=== PATIENT | female | born 1985 | race Caucasian/White ===

== ENCOUNTER 2017-08-21 10:52 | Inpatient (IN) | payer MEDICAID ==
[~2017-08-21] VITALS: Ht 165.1 cm; Wt 59.0 kg
[~2017-08-21 10:52] MED LIST: AMOXICILLIN500 MG PO; BENADRYL50 MG PO; NKM; VICODIN 5-5001 EACH PO
[2017-08-21 11:15] VITALS: BP 108/63
--- NOTE | 2017-08-21 11:19 | Emergency Room Report ---
History of Present Illness General Chief Complaint: Abnormal Labs Source: Patient Present Illness HPI 31-year-old female history of anemia sent by for low H&H. Hemoglobin noted to be 5.5. Patient states that she has a history of anemia, has seen a prosthetics lab technician in the past, does not know why, he is to take iron but the last time she took it was 1 year ago. Denies any abdominal pain nausea vomiting black or bloody stools. Patient states her stools are brown in color. Patient states that she has normal menstrual periods, only about one to 2 pads a day. No clots. Patient denies ever having a transfusion in the past Patient complains of mild fatigue however no shortness of breath no chest pain Allergies: Coded Allergies: No Known Allergies (Unverified , 12/09/12) Patient History Past Medical History: see triage record Past Surgical History: none Pertinent Family History: none Last Menstrual Period: 08/12/17 Reviewed Nursing Documentation: PMH: Agreed, PSxH: Agreed Review of Systems All Other Systems: negative except mentioned in HPI Physical Exam Vital Signs Date Time Temp Pulse Resp B/P (MAP) Pulse Ox O2 Delivery O2 Flow Rate FiO2 08/21/17 10:57 98.1 93 18 109/72 100 Room Air Sp02 EP Interpretation: reviewed, normal General Appearance: no apparent distress, alert, GCS 15, non-toxic, other - slight pallor otherwise nontoxic Head: normocephalic, atraumatic Eyes: bilateral eye normal inspection, bilateral eye PERRL, bilateral eye EOMI ENT: normal ENT inspection, normal pharynx, normal voice, moist mucus membranes Neck: normal inspection, full range of motion, supple Respiratory: normal inspection, lungs clear, normal breath sounds, no respiratory distress, no retraction, no wheezing, speaking full sentences, chest symmetrical Cardiovascular #1: normal inspection, regular rate, rhythm, no edema, normal capillary refill Cardiovascular #2: 2+ radial (R), 2+ radial (L) Gastrointestinal: normal inspection, non tender, soft, non-distended, no guarding Musculoskeletal: normal inspection, back normal, normal range of motion, non- tender Neurologic: normal inspection, alert, oriented x3, responsive, motor strength/ tone normal, sensory intact, normal gait, speech normal Psychiatric: normal inspection, judgement/insight normal, memory normal Skin: no rash, warm/dry, well hydrated, normal turgor, pallor Medical Decision Making Diagnostic Impression: Primary Impression: Symptomatic anemia ER Course 31-year-old female with low H&H DDX: Anemia secondary to anemia of chronic disease, bleeding (? GI versus vaginal bleeding) malignancy Plan: Obtain labs, type and screen, will transfuse emergency room ER course: Patient has been monitored during ED stay, HD stable h/h low, will xfuse 2 units, first unit started in ED Disposition: Pt admitted to med surg observation unit D/W hospitalist Dr Washington Please note that this Emergency Department Report was dictated using The [employer] teacher technology software, occasionally this can lead to erroneous entry secondary to interpretation by the dictation equipment. Laboratory Tests Test 08/21/17 11:15 White Blood Count 4.5 K/UL (4.8-10.8) L Red Blood Count 3.91 M/UL (4.20-5.40) L Hemoglobin 6.4 G/DL (12.0-16.0) *L Hematocrit 22.7 % (37.0-47.0) L Mean Corpuscular Volume 58 FL (80-99) L Mean Corpuscular Hemoglobin 16.4 PG (27.0-31.0) L Mean Corpuscular Hemoglobin Concent 28.3 G/DL (32.0-36.0) L Red Cell Distribution Width 13.4 % (11.6-14.8) Platelet Count 318 K/UL (150-450) Mean Platelet Volume 7.0 FL (6.5-10.1) Neutrophils (%) (Auto) % (45.0-75.0) Lymphocytes (%) (Auto) % (20.0-45.0) Monocytes (%) (Auto) % (1.0-10.0) Eosinophils (%) (Auto) % (0.0-3.0) Basophils (%) (Auto) % (0.0-2.0) Differential Total Cells Counted 100 Neutrophils % (Manual) 63 % (45-75) Lymphocytes % (Manual) 30 % (20-45) Monocytes % (Manual) 4 % (1-10) Eosinophils % (Manual) 3 % (0-3) Basophils % (Manual) 0 % (0-2) Band Neutrophils 0 % (0-8) Platelet Estimate Adequate Platelet Morphology Normal Hypochromasia 2+ Microcytosis 2+ Ovalocytes Occasional Prothrombin Time 10.5 SEC (9.30-11.50) Prothrombin Time INR 1.0 (0.9-1.1) PTT 25 SEC (23-33) Urine Color Pale yellow Urine Appearance Clear Urine pH 6 (4.5-8.0) Urine Specific [place] 1.010 (1.005-1.035) Urine Protein Negative (NEGATIVE) Urine Glucose (UA) Negative (NEGATIVE) Urine Ketones Negative (NEGATIVE) Urine Occult Blood 2+ (NEGATIVE) H Urine Nitrite Negative (NEGATIVE) Urine Bilirubin Negative (NEGATIVE) Urine Urobilinogen Normal MG/DL (0.0-1.0) Urine Leukocyte Esterase 1+ (NEGATIVE) H Urine RBC 2-4 /HPF (0 - 2) H Urine WBC 2-4 /HPF (0 - 2) Urine Squamous Epithelial Cells Few /LPF (NONE/OCC) Urine Bacteria Few /HPF (NONE) Urine HCG, Qualitative Negative Sodium Level 140 MMOL/L (136-145) Potassium Level 3.2 MMOL/L (3.5-5.1) L Chloride Level 104 MMOL/L (98-107) Carbon Dioxide Level 26 MMOL/L (21-32) Anion Gap 10 mmol/L (5-15) Blood Urea Nitrogen 6 mg/dL (7-18) L Creatinine 0.6 MG/DL (0.55-1.30) Estimate Glomerular Filtration Rate > 60 mL/min (>60) Glucose Level 95 MG/DL (74-106) Calcium Level 9.2 MG/DL (8.5-10.1) Total Bilirubin 0.4 MG/DL (0.2-1.0) Aspartate Amino Transferase (AST) 17 U/L (15-37) Alanine Aminotransferase (ALT) 18 U/L (12-78) Alkaline Phosphatase 63 U/L (46-116) Total Protein 7.7 G/DL (6.4-8.2) Albumin 3.8 G/DL (3.4-5.0) Globulin 3.9 g/dL Albumin/Globulin Ratio 1.0 (1.0-2.7) Last Vital Signs Date Time Temp Pulse Resp B/P (MAP) Pulse Ox O2 Delivery O2 Flow Rate FiO2 08/21/17 10:57 98.1 93 18 109/72 100 Room Air Disposition: PLACE IN OBSERVATION Condition: Serious Retino,Clairose M.D. Aug 21, 2017 11:19
[2017-08-21 11:34] LABS: APPEARANCE,URINE CLEAR; KETONES,URINE NEGATIVE (NEGATIVE); LEUKOCYTE ESTERASE ,URINE 1+ (NEGATIVE); NITRITE,URINE NEGATIVE (NEGATIVE); PH,URINE 6 (4.5-8.0); PROTEIN,URINE NEGATIVE (NEGATIVE); UROBILINOGEN,URINE NORMAL MG/DL (0.0-1.0)
[2017-08-21 11:37] LABS: MEAN CORPUSCULAR HEMOGLOBIN 16.4 PG (27.0-31.0); MEAN CORPUSCULAR HGB CONC 28.3 G/DL (32.0-36.0); MEAN CORPUSCULAR VOLUME 58 FL (80-99); PLATELET COUNT 318 K/UL (150-450); RED BLOOD COUNT 3.91 M/UL (4.20-5.40); RED CELL DISTRIBUTION WIDTH 13.4 % (11.6-14.8); WHITE BLOOD COUNT 4.5 K/UL (4.8-10.8)
[2017-08-21 11:43] LABS: PROTHROMBIN TIME 10.5 SEC (9.30-11.50)
[2017-08-21 11:44] LABS: BACTERIA,URINE FEW /HPF; SQUAMOUS EPITHELIAL CELL,UR FEW /LPF (NONE/OCC)
[2017-08-21 12:01] LABS: ALANINE AMINOTRANSFERASE 18 U/L (12-78); ANION GAP 10 mmol/L (5-15); ASPARTATE AMINO TRANSFERASE 17 U/L (15-37); CALCIUM 9.2 MG/DL (8.5-10.1); CARBON DIOXIDE 26 MMOL/L (21-32); CHLORIDE 104 MMOL/L (98-107); CREATININE 0.6 MG/DL (0.55-1.30); GLOMERULAR FILTRATION RATE > 60 mL/min (>60); POTASSIUM 3.2 MMOL/L (3.5-5.1); SODIUM 140 MMOL/L (136-145); TOTAL PROTEIN 7.7 G/DL (6.4-8.2)
[2017-08-21 12:09] LABS: BAND NEUTROPHILS % (MANUAL) 0 % (0-8); BASOPHILS % (MANUAL) 0 % (0-2); EOSINOPHILS % (MANUAL) 3 % (0-3); HYPOCHROMASIA 2+; LYMPHOCYTES % (MANUAL) 30 % (20-45); MICROCYTES 2+; NEUTROPHILS % (MANUAL) 63 % (45-75); PLATELET ESTIMATE ADEQUATE; PLATELET MORPHOLOGY NORMAL; TOTAL CELLS COUNTED 100
[2017-08-21 12:11] LABS: OVALOCYTES OCCASIONAL
[2017-08-21 12:15] VITALS: BP 105/59
[2017-08-21 13:30] VITALS: BP 109/63
[2017-08-21] MEDS ORDERED: LORazepam Inj 2mg/ml 1ml IV PRN (13:30)
[2017-08-21] MEDS ORDERED: Mylanta II UD 30ml ORAL PRN (13:30)
[2017-08-21] MEDS ORDERED: Morphine Sulfate 2mg/ml Inj IVP PRN (13:30)
[2017-08-21 15:10] VITALS: BP 114/70
--- NOTE | 2017-08-21 19:11 | History & Physical ---
History and Physical History & Physicial Dictated for Int Med-Dr Gentile no. [id number]. STEVE CANTU Aug 21, 2017 19:11
[2017-08-21 19:20] LABS: PATH BLOOD SMEAR/OMC SENT TO PATHOLOGIST
[2017-08-21 19:50] LABS: LACTATE DEHYDROGENASE 166 U/L (81-234)
[2017-08-21 20:00] VITALS: BP 96/56
[2017-08-21 20:12] LABS: IRON 9 ug/dL (50-175); TOTAL IRON BINDING CAPACITY 453 ug/dL (250-450)
[2017-08-21] MEDS ORDERED: Miralax 17gm pkt ORAL PRN (21:00)
[2017-08-21] MEDS ORDERED: Zolpidem 5mg tab ORAL PRN (21:00)
--- NOTE | 2017-08-21 21:16 | History and Physical Report ---
DATE OF ADMISSION: 08/21/2017 CHIEF COMPLAINT: The patient is a 31-year-old, white female, who presents with chief complaint of abnormal labs. HISTORY OF PRESENT ILLNESS: The patient was seen by her primary care physician on 08/21/2017. The patient states her primary care physician is Dr. Washington. The patient was told she was severely anemic. The patient had initially seen Dr. Washington for cough and upper respiratory tract infection. The patient was found to have low hemoglobin and hematocrit. The patient was referred to [place] emergency room. Upon arrival at [place] emergency room, the patient was found to have hemoglobin of 6.4. The patient was admitted for severe anemia. PAST MEDICAL HISTORY: The patient denies. Last menstrual period stated to be 08/12/2017. PAST SURGICAL HISTORY: Significant for appendectomy. CURRENT MEDICATIONS: The patient denies. ALLERGIES: No known drug allergies. SOCIAL HISTORY: The patient is . The patient is currently unemployed. The patient denies tobacco or alcohol use. REVIEW OF SYSTEMS: CONSTITUTIONAL: The patient denies weight loss or weight gain. The patient denies fevers or chills. HEENT: The patient denies ear or throat pain. The patient denies headache. CARDIOVASCULAR: The patient denies palpitations or chest pain. CHEST: The patient denies wheeze or shortness of breath. ABDOMEN: The patient denies nausea, vomiting, diarrhea, or constipation. GENITOURINARY: The patient denies dysuria or increased frequency of urination. NEUROMUSCULAR: The patient denies seizures or generalized weakness. PHYSICAL EXAMINATION: VITAL SIGNS: Temperature 97.9, respirations 16, pulse 78, and blood pressure 105/59. GENERAL: The patient is a well developed, well nourished, female, in no apparent distress. HEENT: Eyes, pupils are equal and responsive to light and accommodation. Extraocular movements are intact. NECK: Supple without lymphadenopathy. CHEST: Lungs are clear to auscultation bilaterally without wheezes or rales. CARDIOVASCULAR: Regular rate. S1 and S2 normal without murmurs, rubs, or gallops. ABDOMEN: Soft, nontender, and nondistended. Positive bowel sounds. No evidence of hepatosplenomegaly. Currently, no rebound or guarding noted. EXTREMITIES: Negative for clubbing, cyanosis, or edema. RECTAL: Refused. GENITAL: Refused. NEUROLOGIC: Cranial nerves II through XII are grossly intact without focal deficits. Motor strength is 5/5 bilaterally. Deep tendon reflexes are 2+ plantar. LABORATORY STUDIES: WBC 4.5, hemoglobin 6.4, hematocrit 22.7, and platelets 318,000 with MCV of 58 and MCH of 28.3. Sodium 140, potassium 3.3, chloride 104, CO2 26, BUN 6, creatinine 0.6, and glucose 95. ASSESSMENT: This is a 31-year-old, female. 1. Anemia. 2. Upper respiratory tract infection. TREATMENT: 1. Anemia. A Hematology/Oncology consultation was obtained with Dr. Reyes. The patient is receiving one unit of packed RBCs at this time. Serum iron panel is pending. We will follow recommendations of Hematology. Given the patient's age, the patient may not require an endoscopy or colonoscopy. We will follow recommendations of Gastroenterology. 2. Upper respiratory tract infection. Luis Armando Martin M.D. DR: TAHIR JOB#: [id number] CC:
[2017-08-21] MEDS ORDERED: Iron Sucrose 100 MG in NS 55 ML IV SCH (23:00)
[2017-08-22] VITALS: BP 141/63
[2017-08-22 04:43] VITALS: BP 92/56
[2017-08-22 06:42] LABS: APPEARANCE,URINE SLIGHTLY CLOUDY; KETONES,URINE 1+ (NEGATIVE); LEUKOCYTE ESTERASE ,URINE 2+ (NEGATIVE); NITRITE,URINE NEGATIVE (NEGATIVE); PH,URINE 6.5 (4.5-8.0); PROTEIN,URINE NEGATIVE (NEGATIVE); UROBILINOGEN,URINE NORMAL MG/DL (0.0-1.0)
[2017-08-22 07:05] LABS: BACTERIA,URINE MODERATE /HPF; SQUAMOUS EPITHELIAL CELL,UR FEW /LPF (NONE/OCC)
[2017-08-22 08:00] VITALS: BP 114/68
--- NOTE | 2017-08-22 08:27 | Consultation ---
History of Present Illness General Date patient seen: Aug 22, 2017 Time patient seen: 07:45 Chief Complaint: Abnormal Labs Referring physician: dr Gentile Reason for Consultation: inpatient management Present Illness HPI 31-year-old female with history of anemia was sent by her PMD, dr Monique . for low H&H. patient originally seen the doctor for upper respiratory infection hemoglobin on clinic labs -5.5. Patient reported history of anemia, seen teller head in the past, was on iron supplement, unknown reason Denied any abdominal pain, nausea ,vomiting, black or bloody stools. Patient reported normal menstrual periods, only about one to 2 pads a day. No clots. Patient complained of mild fatigue and lightheadedness ,but no shortness of breath , no chest pain Workup in ED revealed low HH -6.4/22.7;, MCV -58 UA+ pyuria test negative no fever pulse oximetry stable on RA no leukocytosis stable lytes, except K-3.2; stable renal parameters and LFT transfusion was started in ED and patient was admitted for further management Allergies: Coded Allergies: No Known Allergies (Unverified , 12/09/12) Medication History Scheduled Amoxicillin* (Amoxil*), 500 MG PO Q8H Diphenhydramine HCl (Diphenhydramine HCl), 50 MG PO Q6H Hydrocodone/Acetaminophen 5-500 (Vicodin 5-500), 1 TAB PO Q8H No Known Medications* (NKM - No Known Medications*), 0 ., (Reported) Patient History History Provided By: Patient Healthcare decision maker Resuscitation status Full Code Advanced Directive on File Past Medical/Surgical History Past Medical/Surgical History: (1) Anemia Review of Systems Constitutional: Reports: weakness Eye: Reports: no symptoms ENT: Reports: no symptoms Respiratory: Reports: no symptoms Cardiovascular: Reports: no symptoms Gastrointestinal: Reports: no symptoms Genitourinary: Reports: no symptoms Musculoskeletal: Reports: no symptoms Skin: Reports: no symptoms Psychiatric: Reports: no symptoms Neurological: Reports: no symptoms Endocrine: Reports: no symptoms Hematologic/Lymphatic: Reports: see HPI Physical Exam General Appearance: WD/WN, no apparent distress, alert Lines, tubes and drains: peripheral HEENT: normocephalic, atraumatic, anicteric, mucous membranes moist, PERRL Neck: non-tender, supple Respiratory/Chest: chest wall non-tender, lungs clear, no respiratory distress , no accessory muscle use Cardiovascular/Chest: normal rate, regular rhythm, no JVD Abdomen: normal bowel sounds, non tender, soft Extremities: normal range of motion, non-tender, no calf tenderness Skin Exam: normal pigmentation, warm/dry Neurologic: scourer II-XII grossly normal, no motor/sensory deficits, alert Last 24 Hour Vital Signs Date Time Temp Pulse Resp B/P (MAP) Pulse Ox O2 Delivery O2 Flow Rate FiO2 08/22/17 04:43 98.1 69 18 92/56 99 Room Air 08/22/17 00:00 98.4 77 18 141/63 99 Room Air 08/21/17 20:00 97.9 82 18 96/56 99 Room Air 08/21/17 15:10 98.6 81 114/70 100 Room Air 08/21/17 14:30 66 20 121/53 100 Room Air 08/21/17 13:30 97.8 81 17 109/63 100 Room Air 08/21/17 12:15 97.9 78 16 105/59 100 Room Air 08/21/17 11:15 80 14 108/63 100 Room Air 08/21/17 10:57 98.1 93 18 109/72 100 Room Air Laboratory Tests Test 08/21/17 11:15 08/21/17 22:20 08/22/17 02:50 White Blood Count 4.5 K/UL (4.8-10.8) L Red Blood Count 3.91 M/UL (4.20-5.40) L Hemoglobin 6.4 G/DL (12.0-16.0) *L Hematocrit 22.7 % (37.0-47.0) L Mean Corpuscular Volume 58 FL (80-99) L Mean Corpuscular Hemoglobin 16.4 PG (27.0-31.0) L Mean Corpuscular Hemoglobin Concent 28.3 G/DL (32.0-36.0) L Red Cell Distribution Width 13.4 % (11.6-14.8) Platelet Count 318 K/UL (150-450) Mean Platelet Volume 7.0 FL (6.5-10.1) Neutrophils (%) (Auto) % (45.0-75.0) Lymphocytes (%) (Auto) % (20.0-45.0) Monocytes (%) (Auto) % (1.0-10.0) Eosinophils (%) (Auto) % (0.0-3.0) Basophils (%) (Auto) % (0.0-2.0) Differential Total Cells Counted 100 Neutrophils % (Manual) 63 % (45-75) Lymphocytes % (Manual) 30 % (20-45) Monocytes % (Manual) 4 % (1-10) Eosinophils % (Manual) 3 % (0-3) Basophils % (Manual) 0 % (0-2) Band Neutrophils 0 % (0-8) Platelet Estimate Adequate Platelet Morphology Normal Hypochromasia 2+ Microcytosis 2+ Ovalocytes Occasional Erythrocyte Sedimentation Rate 33 MM/HR (0-20) H Reticulocyte Count 1.0 % (0.0-2.0) Prothrombin Time 10.5 SEC (9.30-11.50) Prothromb Time International Ratio 1.0 (0.9-1.1) Activated Partial Thromboplast Time 25 SEC (23-33) Urine Color Pale yellow Yellow Urine Appearance Clear Slightly cloudy Urine pH 6 (4.5-8.0) 6.5 (4.5-8.0) Urine Specific [place] 1.010 (1.005-1.035) 1.015 (1.005-1.035) Urine Protein Negative (NEGATIVE) Negative (NEGATIVE) Urine Glucose (UA) Negative (NEGATIVE) Negative (NEGATIVE) Urine Ketones Negative (NEGATIVE) 1+ (NEGATIVE) H Urine Occult Blood 2+ (NEGATIVE) H 2+ (NEGATIVE) H Urine Nitrite Negative (NEGATIVE) Negative (NEGATIVE) Urine Bilirubin Negative (NEGATIVE) Negative (NEGATIVE) Urine Urobilinogen Normal MG/DL (0.0-1.0) Normal MG/DL (0.0-1.0) Urine Leukocyte Esterase 1+ (NEGATIVE) H 2+ (NEGATIVE) H Urine RBC 2-4 /HPF (0 - 2) H 2-4 /HPF (0 - 2) H Urine WBC 2-4 /HPF (0 - 2) 10-15 /HPF (0 - 2) H Urine Squamous Epithelial Cells Few /LPF (NONE/OCC) Few /LPF (NONE/OCC) Urine Bacteria Few /HPF (NONE) Moderate /HPF (NONE) H Urine HCG, Qualitative Negative Sodium Level 140 MMOL/L (136-145) Potassium Level 3.2 MMOL/L (3.5-5.1) L Chloride Level 104 MMOL/L (98-107) Carbon Dioxide Level 26 MMOL/L (21-32) Anion Gap 10 mmol/L (5-15) Blood Urea Nitrogen 6 mg/dL (7-18) L Creatinine 0.6 MG/DL (0.55-1.30) Estimat Glomerular Filtration Rate > 60 mL/min (>60) Glucose Level 95 MG/DL (74-106) Calcium Level 9.2 MG/DL (8.5-10.1) Iron Level 9 ug/dL (50-175) L Total Iron Binding Capacity 453 ug/dL (250-450) H Percent Iron Saturation 2 % (15-50) L Unsaturated Iron Binding 444 ug/dL (112-346) H Ferritin 2 NG/ML (8-388) L Total Bilirubin 0.4 MG/DL (0.2-1.0) Aspartate Amino Transf (AST/SGOT) 17 U/L (15-37) Alanine Aminotransferase (ALT/SGPT) 18 U/L (12-78) Alkaline Phosphatase 63 U/L (46-116) Lactate Dehydrogenase 166 U/L (81-234) Total Protein 7.7 G/DL (6.4-8.2) Albumin 3.8 G/DL (3.4-5.0) Globulin 3.9 g/dL Albumin/Globulin Ratio 1.0 (1.0-2.7) Vitamin B12 Level 850 PG/ML (193-986) Folate 12.0 NG/ML (3.1-17.5) Hemoglobin A Pending Hemoglobin A2 Pending Hemoglobin C Pending Hemoglobin F () Pending Hemoglobin S Pending Variant Hemoglobin Pending Hemoglobin Electrophoresis Interp Pending Hemoglobin Interpretation Pending Hemoglobin Solubility Pending Height (Feet): 5 Height (Inches): 5.00 Weight (Pounds): 130 Medications Current Medications Medications (Trade) Dose Ordered Sig/Ely Route PRN Reason Start Time Stop Time Status Last Admin Dose Admin Acetaminophen (Tylenol) 650 mg Q4H PRN ORAL T>100.5 08/21/17 13:30 09/20/17 13:29 Al Hydroxide/Mg Hydroxide (Mylanta II) 30 ml Q6H PRN ORAL dyspepsia 08/21/17 13:30 09/20/17 13:29 Dextrose (Dextrose 50%) STAT PRN IV Hypoglycemia 08/21/17 13:30 09/20/17 13:29 Iron Sucrose 100 mg/Sodium Chloride 60 ml @ 240 mls/hr BEDTIME IV 08/21/17 23:00 08/25/17 21:14 08/21/17 23:20 Lorazepam (Ativan 2mg/ml 1ml) 0.5 mg Q4H PRN IV For Anxiety 08/21/17 13:30 08/28/17 13:29 Morphine Sulfate (Morphine Sulfate) 1 mg Q4H PRN IVP PAIN 4-10 08/21/17 13:30 08/28/17 13:29 08/21/17 18:08 Ondansetron HCl (Zofran) 4 mg Q6H PRN IVP Nausea & Vomiting 08/21/17 13:30 09/20/17 13:29 Polyethylene Glycol (Miralax) 17 gm HSPRN PRN ORAL Constipation 08/21/17 21:00 09/20/17 20:59 Zolpidem Tartrate (Ambien) 5 mg HSPRN PRN ORAL Insomnia 08/21/17 21:00 08/28/17 20:59 Assessment/Plan Assessment/Plan ASSESSMENT acute symptomatic anemia requiring blood transfusion transfusion reaction iron deficiency anemia hypokalemia URI PLAN OF CARE [facility] floor s/p blood transfusion on 2 nd unit got blood transfusion reaction, transfusion stopped HH -7.925.6 this am monitor counts anemia w/up with evidence of iron deficiency anemia started on IV Venofer heme follows stool OB, check CEA GI follows check HGb electrophoresis K replaced monitor lytes O2 HHN prn case discussed and evaluated by supervising physician Julio Silverio)Milena NP Aug 22, 2017 08:27
[2017-08-22 08:40] LABS: MEAN CORPUSCULAR HEMOGLOBIN 19.3 PG (27.0-31.0); MEAN CORPUSCULAR HGB CONC 30.9 G/DL (32.0-36.0); MEAN CORPUSCULAR VOLUME 63 FL (80-99); MEAN PLATELET VOLUME 7.3 FL (6.5-10.1); PLATELET COUNT 289 K/UL (150-450); RED CELL DISTRIBUTION WIDTH 21.7 % (11.6-14.8)
--- NOTE | 2017-08-22 08:45 | Consultation ---
DATE OF CONSULTATION: 08/21/2017 HEMATOLOGY/ONCOLOGY CONSULTATION CONSULTING PHYSICIAN: David Reyes M.D. REQUESTING PHYSICIAN: 1. Jorge Luis Gentile M.D. 2. Luis Armando Martin M.D. REASON FOR CONSULTATION: Evaluation of anemia. IDENTIFICATION DATA: Dear Dr. Martin, The patient is a pleasant 31-year-old female with past medical history significant for anemia and was noticed to have a decrease in hemoglobin, has been seen by security system administrator in the past, 00:33 most recently approximately 1 year ago. Her stools have been brown in color. No clots noted. She does have menstrual periods that are frequent, uses about 1 to 2 pads per day. Denies having any history of blood transfusions. Hematology Service was consulted. The patient was started on iron treatment. Her last menstrual period was 08/12/2017. PAST MEDICAL HISTORY: Iron-deficient anemia. PAST SURGICAL HISTORY: None noted. ALLERGIES: No known drug allergies. FAMILY HISTORY: Noncontributory. PHYSICIAN/OPHTHALMOLOGIST HISTORY: Last menstrual period 08/12/2017 REVIEW OF SYSTEMS: CONSTITUTIONAL: Weakness and fatigue. SKIN: No rashes, bumps, or itching. HEENT: No headache, hearing or vision changes. BREASTS: No lumps, pain, or discharge. PULMONARY: No cough, sputum, or shortness of breath. GASTROINTESTINAL: No nausea, vomiting, or diarrhea. GENITOURINARY: No dysuria, frequency, or urgency. MUSCULOSKELETAL: 01:14. PHYSICAL EXAMINATION: GENERAL: The patient is in no acute distress. VITAL SIGNS: Reviewed. PULMONARY: Decreased breath sounds. CARDIOVASCULAR: Regular rate. No S3 or S4. ABDOMEN: Soft, nontender, and nondistended. EXTREMITIES: 1+ edema. LABORATORY DATA: WBC 4.5, hemoglobin 6.4, hematocrit 22, and platelet count 280,000, ESR 33. INR 1. Chemistry reviewed, BUN 6, creatinine 0.6. TIBC of 140 01:38 vitamin B12 01:39. ASSESSMENT AND RECOMMENDATIONS: 1. Severe iron-deficiency anemia, have begun patient on IV iron. It is likely related to menstrual loss with heavy periods. Recommended to see knitting teacher as an outpatient. Continue ferrous sulfate once the patient is discharged. 2. Tachycardia, likely secondary to anemia. 3. Weakness and fatigue, 02:46 underlying iron-deficiency anemia. 4. Menstrual periods, which are heavy. 5. 03:01 at this time. The patient needs observation. Continue to closely monitor. 6. Hypokalemia, repleted. I appreciate the consultation. David Reyes M.D. DR: Leann JOB#: [id number] CC:
[2017-08-22 09:11] LABS: ALANINE AMINOTRANSFERASE 13 U/L (12-78); ANION GAP 9 mmol/L (5-15); ASPARTATE AMINO TRANSFERASE 16 U/L (15-37); CALCIUM 8.8 MG/DL (8.5-10.1); CARBON DIOXIDE 26 MMOL/L (21-32); CHLORIDE 106 MMOL/L (98-107); CREATININE 0.6 MG/DL (0.55-1.30); GLOMERULAR FILTRATION RATE > 60 mL/min (>60); POTASSIUM 3.2 MMOL/L (3.5-5.1); SODIUM 141 MMOL/L (136-145); TOTAL PROTEIN 6.5 G/DL (6.4-8.2)
[2017-08-22 09:36] LABS: BAND NEUTROPHILS % (MANUAL) 0 % (0-8); BASOPHILS % (MANUAL) 0 % (0-2); EOSINOPHILS % (MANUAL) 0 % (0-3); LYMPHOCYTES % (MANUAL) 15 % (20-45); NEUTROPHILS % (MANUAL) 76 % (45-75); PLATELET ESTIMATE ADEQUATE; PLATELET MORPHOLOGY NORMAL; TOTAL CELLS COUNTED 100
[2017-08-22 09:37] LABS: ANISOCYTOSIS 2+; HYPOCHROMASIA 1+; MICROCYTES 2+; OVALOCYTES OCCASIONAL
[2017-08-22 09:49] LABS: OTHERS PATHOLOGIST COMMENT
--- NOTE | 2017-08-22 11:38 | GI Initial Consult Note ---
History of Present Illness General Date patient seen: Aug 22, 2017 Time patient seen: 11:37 Reason for Hospitalization: Abnormal Labs Referring physician: CHARY HENSON Reason for Consultation: ANEMIA Present Illness HPI 31-year-old female history of anemia sent by for low H&H. Hemoglobin noted to be 5.5. Patient states that she has a history of anemia, has seen a pillowcase maker in the past, does not know why, he is to take iron but the last time she took it was 1 year ago. Denies any abdominal pain nausea vomiting black or bloody stools. Patient states her stools are brown in color. Patient states that she has normal menstrual periods, only about one to 2 pads a day. No clots. Patient denies ever having a transfusion in the past. Patient complains of mild fatigue however no shortness of breath no chest pain. GI consulted for anemia. HPI as noted above. Pt seen on floor, awake A&Ox4 NAD with no active s/sx of N/V/D. No noted active bleeding at this time. Patient denies any blood noted blood loss. She presents today with anemia requiring 2U blood. In addition, labs show hypokalemia and iron deficiency. No history of colonoscopy/endoscopy. Home Meds Active Scripts Diphenhydramine HCl (Diphenhydramine HCl) 50 Mg Cap, 50 MG PO Q6H, #14 Prov:BRENT DUEÑAS M.D. 12/09/12 Hydrocodone/Acetaminophen 5-500 (VICODIN 5-500) 1 Each Tablet, 1 TAB PO Q8H, # 20 TAB Take 1 tablet by mouth every eight hours as needed for pain. Prov:BRENT DUEÑAS M.D. 12/09/12 Amoxicillin* (AMOXIL*) 500 Mg Capsule, 500 MG PO Q8H, #21 CAP Prov:BRENT DUEÑAS M.D. 12/09/12 Reported Medications No Known Medications* (NKM - No Known Medications*) ., 0 . 12/09/12 Med list reviewed/reconciled: Yes Allergies: Coded Allergies: No Known Allergies (Unverified , 12/09/12) Patient History History Provided By: Patient, Medical Record Past Medical History: none Social History: Denies: smoking, alcohol use, drug use, other Review of Systems All Other Systems: negative except mentioned in HPI Physical Exam Vital Signs Date Time Temp Pulse Resp B/P (MAP) Pulse Ox O2 Delivery O2 Flow Rate FiO2 08/21/17 10:57 98.1 93 18 109/72 100 Room Air Sp02 EP Interpretation: reviewed, normal Labs Laboratory Tests Test 08/21/17 22:20 08/22/17 02:50 08/22/17 08:20 Hemoglobin A Pending Hemoglobin A2 Pending Hemoglobin C Pending Hemoglobin F () Pending Hemoglobin S Pending Variant Hemoglobin Pending Hemoglobin Electrophoresis Interp Pending Hemoglobin Interpretation Pending Hemoglobin Solubility Pending Urine Color Yellow Urine Appearance Slightly cloudy Urine pH 6.5 (4.5-8.0) Urine Specific [place] 1.015 (1.005-1.035) Urine Protein Negative (NEGATIVE) Urine Glucose (UA) Negative (NEGATIVE) Urine Ketones 1+ (NEGATIVE) H Urine Occult Blood 2+ (NEGATIVE) H Urine Nitrite Negative (NEGATIVE) Urine Bilirubin Negative (NEGATIVE) Urine Urobilinogen Normal MG/DL (0.0-1.0) Urine Leukocyte Esterase 2+ (NEGATIVE) H Urine RBC 2-4 /HPF (0 - 2) H Urine WBC 10-15 /HPF (0 - 2) H Urine Squamous Epithelial Cells Few /LPF (NONE/OCC) Urine Bacteria Moderate /HPF (NONE) H White Blood Count 6.0 K/UL (4.8-10.8) Red Blood Count 4.10 M/UL (4.20-5.40) L Hemoglobin 7.9 G/DL (12.0-16.0) L Hematocrit 25.6 % (37.0-47.0) L Mean Corpuscular Volume 63 FL (80-99) #L Mean Corpuscular Hemoglobin 19.3 PG (27.0-31.0) L Mean Corpuscular Hemoglobin Concent 30.9 G/DL (32.0-36.0) L Red Cell Distribution Width 21.7 % (11.6-14.8) H Platelet Count 289 K/UL (150-450) Mean Platelet Volume 7.3 FL (6.5-10.1) Neutrophils (%) (Auto) % (45.0-75.0) Lymphocytes (%) (Auto) % (20.0-45.0) Monocytes (%) (Auto) % (1.0-10.0) Eosinophils (%) (Auto) % (0.0-3.0) Basophils (%) (Auto) % (0.0-2.0) Differential Total Cells Counted 100 Neutrophils % (Manual) 76 % (45-75) H Lymphocytes % (Manual) 15 % (20-45) L Monocytes % (Manual) 9 % (1-10) Eosinophils % (Manual) 0 % (0-3) Basophils % (Manual) 0 % (0-2) Band Neutrophils 0 % (0-8) Platelet Estimate Adequate Platelet Morphology Normal Hypochromasia 1+ Anisocytosis 2+ Microcytosis 2+ Ovalocytes Occasional Sodium Level 141 MMOL/L (136-145) Potassium Level 3.2 MMOL/L (3.5-5.1) L Chloride Level 106 MMOL/L (98-107) Carbon Dioxide Level 26 MMOL/L (21-32) Anion Gap 9 mmol/L (5-15) Blood Urea Nitrogen 8 mg/dL (7-18) Creatinine 0.6 MG/DL (0.55-1.30) Estimat Glomerular Filtration Rate > 60 mL/min (>60) Glucose Level 116 MG/DL (74-106) H Calcium Level 8.8 MG/DL (8.5-10.1) Magnesium Level 1.9 MG/DL (1.8-2.4) Total Bilirubin 1.0 MG/DL (0.2-1.0) Aspartate Amino Transf (AST/SGOT) 16 U/L (15-37) Alanine Aminotransferase (ALT/SGPT) 13 U/L (12-78) Alkaline Phosphatase 54 U/L (46-116) Total Protein 6.5 G/DL (6.4-8.2) Albumin 3.2 G/DL (3.4-5.0) L Globulin 3.3 g/dL Albumin/Globulin Ratio 1.0 (1.0-2.7) Thyroid Stimulating Hormone (TSH) 0.660 uiU/mL (0.360-3.740) General Appearance: well appearing, no apparent distress, alert Head: normocephalic EENT: PERRL/EOMI, normal ENT inspection Neck: supple Respiratory: normal breath sounds, no respiratory distress Cardiovascular: normal rate Gastrointestinal: normal inspection, non tender, soft, normal bowel sounds, non -distended Rectal: deferred Genitourinary: no CVA tenderness Musculoskeletal: normal inspection, back normal Neurologic: normal inspection, alert, oriented x3, responsive Psychiatric: normal inspection, judgement/insight normal, memory normal Skin: normal inspection, normal color, no rash, warm/dry, palpation normal, well hydrated Lymphatic: normal inspection, no adenopathy Current Medications Current Medications Medications (Trade) Dose Ordered Sig/Ely Route PRN Reason Start Time Stop Time Status Last Admin Dose Admin Acetaminophen (Tylenol) 650 mg Q4H PRN ORAL Mild Pain/Temp > 100.5 08/22/17 10:00 09/21/17 09:59 08/22/17 09:52 Al Hydroxide/Mg Hydroxide (Mylanta II) 30 ml Q6H PRN ORAL dyspepsia 08/21/17 13:30 09/20/17 13:29 Dextrose (Dextrose 50%) STAT PRN IV Hypoglycemia 08/21/17 13:30 09/20/17 13:29 Iron Sucrose 100 mg/Sodium Chloride 60 ml @ 240 mls/hr BEDTIME IV 08/21/17 23:00 08/25/17 21:14 08/21/17 23:20 Lorazepam (Ativan 2mg/ml 1ml) 0.5 mg Q4H PRN IV For Anxiety 08/21/17 13:30 08/28/17 13:29 Morphine Sulfate (Morphine Sulfate) 1 mg Q4H PRN IVP PAIN 4-10 08/21/17 13:30 08/28/17 13:29 08/21/17 18:08 Ondansetron HCl (Zofran) 4 mg Q6H PRN IVP Nausea & Vomiting 08/21/17 13:30 09/20/17 13:29 Polyethylene Glycol (Miralax) 17 gm HSPRN PRN ORAL Constipation 08/21/17 21:00 09/20/17 20:59 Zolpidem Tartrate (Ambien) 5 mg HSPRN PRN ORAL Insomnia 08/21/17 21:00 08/28/17 20:59 GI: Plan Problems: (1) Iron deficiency anemia Plan Iron deficiency anemia >> venofer x 5 days OB stool r/o GI bleed monitor H&H, prn transfusions regular diet bowel regime ppi fu labs Discussed with Dr. Chung. Thank you for this patient referral, we will follow. Rebecca Augustine N.P. Aug 22, 2017 11:38
[2017-08-22 12:00] VITALS: BP 100/63
[2017-08-22] MEDS ORDERED: FEROSUL300 MG/6.8 PO (16:09)
--- NOTE | 2017-08-22 16:13 | Discharge Summary ---
Discharge Summary Hospital Course Date of Admission Aug 21, 2017 at 12:37 Date of Discharge Admitting Diagnosis anemia JANES Suazo is a 31 year old female who was admitted on Aug 21, 2017 at 12:37 for Anemia Hospital Course Last 24 Hour Vital Signs Date Time Temp Pulse Resp B/P (MAP) Pulse Ox O2 Delivery O2 Flow Rate FiO2 08/22/17 12:00 98.1 67 20 100/63 98 Room Air 08/22/17 08:00 98.1 86 20 114/68 100 Room Air 08/22/17 04:43 98.1 69 18 92/56 99 Room Air 08/22/17 00:00 98.4 77 18 141/63 99 Room Air 08/21/17 20:00 97.9 82 18 96/56 99 Room Air General: No acute distress, awake and alert HEENT: NCAT, sclera anicteric, PERRL, EOMI. Neck: Supple, no significant jugular venous distention, Lungs: Good inspiratory effort, no accessory muscle use, clear to auscultation bilaterally, no Wheeze or Rales. Heart: Regular rate and rhythm, normal S1/S2, no murmurs Abdomen: soft, nontender, nondistended. Normoactive bowel sounds. / Rectal: Refused and deferred. Extremities: No Cyanosis , clubbing or edema. Neuro: A&O x 3, Able to move all extremities Skin: warm, no rashes or lesions Psych: Normal mood and affect Discharge Summary dictated # [id number] Discharge Discharge Disposition Patient was discharged to Discharge Diagnoses: Jorge Luis Gnetile MD Aug 22, 2017 16:13
[2017-08-22] MEDS ORDERED: VITAMIN C500 M1 ORAL (16:16)
[2017-08-22] MEDS ORDERED: Tubing IV Secondary IV ONE (16:49)
[2017-08-22] MEDS ORDERED: NS 500ML IV ONE (16:49)
[2017-08-22] MEDS ORDERED: Tubing IV Blood Pump IV ONE (16:49)
--- NOTE | 2017-08-22 17:07 | General Progress Note ---
Assessment/Plan Assessment/Plan ASSESSMENT AND RECOMMENDATIONS: 1. Severe iron-deficiency anemia, have begun patient on IV iron. It is likely related to menstrual loss with heavy periods. Recommended to see software systems analyst as an outpatient. Continue ferrous sulfate once the patient is discharged. 2. Tachycardia, likely secondary to anemia. 3. Weakness and fatigue, 2/2 underlying iron-deficiency anemia. 4. Menstrual periods, which are heavy. 5. Hypokalemia, repleted. Subjective Constitutional: Reports: no symptoms HEENT: Reports: no symptoms Cardiovascular: Reports: no symptoms Respiratory: Reports: no symptoms Gastrointestinal/Abdominal: Reports: no symptoms Genitourinary: Reports: no symptoms Neurologic/Psychiatric: Reports: no symptoms Endocrine: Reports: no symptoms Hematologic/Lymphatic: Reports: no symptoms Allergies: Coded Allergies: No Known Allergies (Unverified , 12/09/12) Subjective feeling better Objective Last 24 Hour Vital Signs Date Time Temp Pulse Resp B/P (MAP) Pulse Ox O2 Delivery O2 Flow Rate FiO2 08/22/17 12:00 98.1 67 20 100/63 98 Room Air 08/22/17 08:00 98.1 86 20 114/68 100 Room Air 08/22/17 04:43 98.1 69 18 92/56 99 Room Air 08/22/17 00:00 98.4 77 18 141/63 99 Room Air 08/21/17 20:00 97.9 82 18 96/56 99 Room Air Intake and Output 08/22/17 08/23/17 19:00 07:00 Intake Total 820 ml Balance 820 ml Intake Oral 820 ml # Voids 3 Laboratory Tests 08/21/17 22:20: Hemoglobin A [Pending], Hemoglobin A2 [Pending], Hemoglobin C [Pending], Hemoglobin F () [Pending], Hemoglobin S [Pending], Variant Hemoglobin [ Pending], Hemoglobin Electrophoresis Interp [Pending], Hemoglobin Interpretation [Pending], Hemoglobin Solubility [Pending] 08/22/17 02:50: Urine Color Yellow, Urine Appearance Slightly cloudy, Urine pH 6.5, Urine Specific [place] 1.015, Urine Protein Negative, Urine Glucose (UA) Negative, Urine Ketones 1+H, Urine Occult Blood 2+H, Urine Nitrite Negative, Urine Bilirubin Negative, Urine Urobilinogen Normal, Urine Leukocyte Esterase 2+H, Urine RBC 2-4H, Urine WBC 10-15H, Urine Squamous Epithelial Cells Few, Urine Bacteria ModerateH 08/22/17 08:20: White Blood Count 6.0, Red Blood Count 4.10L, Hemoglobin 7.9L, Hematocrit 25.6L , Mean Corpuscular Volume 63#L, Mean Corpuscular Hemoglobin 19.3L, Mean Corpuscular Hemoglobin Concent 30.9L, Red Cell Distribution Width 21.7H, Platelet Count 289, Mean Platelet Volume 7.3, Neutrophils (%) (Auto) , Lymphocytes (%) (Auto) , Monocytes (%) (Auto) , Eosinophils (%) (Auto) , Basophils (%) (Auto) , Differential Total Cells Counted 100, Neutrophils % ( Manual) 76H, Lymphocytes % (Manual) 15L, Monocytes % (Manual) 9, Eosinophils % ( Manual) 0, Basophils % (Manual) 0, Band Neutrophils 0, Platelet Estimate Adequate, Platelet Morphology Normal, Hypochromasia 1+, Anisocytosis 2+, Microcytosis 2+, Ovalocytes Occasional, Sodium Level 141, Potassium Level 3.2L, Chloride Level 106, Carbon Dioxide Level 26, Anion Gap 9, Blood Urea Nitrogen 8 , Creatinine 0.6, Estimat Glomerular Filtration Rate > 60, Glucose Level 116H, Calcium Level 8.8, Magnesium Level 1.9, Total Bilirubin 1.0, Aspartate Amino Transf (AST/SGOT) 16, Alanine Aminotransferase (ALT/SGPT) 13, Alkaline Phosphatase 54, Total Protein 6.5, Albumin 3.2L, Globulin 3.3, Albumin/Globulin Ratio 1.0, Thyroid Stimulating Hormone (TSH) 0.660 Height (Feet): 5 Height (Inches): 5.00 Weight (Pounds): 130 General Appearance: no apparent distress Cardiovascular: normal peripheral pulses Respiratory/Chest: chest wall non-tender, lungs clear Abdomen: soft Skin: warm/dry David Reyes Aug 22, 2017 17:06
--- NOTE | 2017-08-23 04:45 | Discharge Summary ---
DATE OF ADMISSION: 08/21/2017 DATE OF DISCHARGE: 08/22/2017 BRIEF HISTORY AND HOSPITAL COURSE: This is a 31-year-old very delightful female with past medical history significant for anemia, who presented to the hospital and was noted to have anemia, had extensive workup done in the past by Hematology and the workup was essentially unremarkable. The patient denies any abdominal pain, nausea, vomiting, or bloody stools or dark stool or excessive vaginal bleeding. Shortly after initial evaluation, the patient was noted to be with iron-deficiency anemia. The patient has been started on Venofer and is being discharged home after the blood transfusion. FINAL DIAGNOSES: 1. Iron-deficiency anemia. 2. Upper respiratory infection. MEDICATION ON DISCHARGE: Continue discharge medication list. ACTIVITY: As tolerated. DIET: Regular diet. FOLLOWUP: I advised the patient to follow up with hammer smith as well as myself within one week. My card was provided to the patient, and the patient was discharged home on iron 325 mg p.o. b.i.d. as well as vitamin C 500 mg p.o. daily. Jorge Luis Gentile M.D. DR: Cole JOB#: [id number] CC:
--- NOTE | 2017-08-24 09:47 | Diagnostic Imaging Report ---
APPROVED REPORT CPT Code: 48233 Present Symptoms Comments: R/O DVT BILATERAL: Imaging reveals a patent deep venous system bilaterally. There is no evidence of thrombus within the femoral, popliteal or tibial segments. The greater saphenous veins are also within normal limits. Doppler indicates normal spontaneous flow within these segments.
[2017-08-26 08:21] LABS: HEMOGLOBIN A 98.1 % (94.0-98.0); HEMOGLOBIN A2 1.9 % (0.7-3.1)
== END 2017-08-22 16:50 | disposition home or self-care (01) | DRG 663 ==
LOC: EMR 11:43 → 4E 12:37 → EDBEDREQ 13:20
PROC: 30233N1 Transfusion of Nonautologous Red Blood Cells into Peripheral Vein, Percutaneous Approach (ICD-10-PCS; principal; 2017-08-21)
DX: D62 Acute posthemorrhagic anemia (principal); E87.6 Hypokalemia; N92.0 Excessive and frequent menstruation with regular cycle; R00.0 Tachycardia, unspecified; R53.1 Weakness; M54.89 Other dorsalgia; T80.89XA Other complications following infusion, transfusion and therapeutic injection, initial encounter; Y84.8 Other medical procedures as the cause of abnormal reaction of the patient, or of later complication, without mention of misadventure at the time of the procedure; J06.9 Acute upper respiratory infection, unspecified
CPT/HCPCS: 36415; 80053; 81001; 81003; 81025; 82607; 82728; 82746; 82962; 83020; 83540; 83550; 83615; 83735; 84443; 85007; 85025; 85044; 85060; 85610; 85651; 85730; 86850; 86900; 86901; 86920; 87086; 87181; 93970; 99285; J8499

== ENCOUNTER 2018-06-27 22:22 | Emergency (ER) | payer MEDICAID ==
[~2018-06-27] VITALS: Ht 170.2 cm; Wt 79.4 kg
[~2018-06-27 22:22] MED LIST changes: +FEROSUL300 MG/6.8 PO; +VITAMIN C500 M1 ORAL
[2018-06-27] MEDS ORDERED: Morphine Sulfate 4mg/ml Inj (IV USE ONLY) IV ONE (23:00)
[2018-06-27 23:05] VITALS: BP 118/82
[2018-06-27] MEDS ORDERED: Norco 5mg/325mg tab ORAL ONE (23:15)
--- NOTE | 2018-06-27 23:32 | Emergency Room Report ---
History of Present Illness General Chief Complaint: Headache Source: Patient, Family Member Present Illness HPI Is a 32 year female with no cerumen past medical history. She presents with left facial pain and numbness and left arm pain. Onset for last 34 hours. She had history left facial pain before. But never had arm pain before. Pain is mostly localized to the left shoulder. Worse with movement. Woke up with this. Denies any trauma. No fever chills. Pain is 8 out of 10. Better with rest. No chest pain. Allergies: Coded Allergies: No Known Allergies (Unverified , 12/09/12) Patient History Past Medical History: see triage record, old chart reviewed Past Surgical History: none Pertinent Family History: none Social History: Denies: smoking Last Menstrual Period: jun Now: No Immunizations: other Reviewed Nursing Documentation: PMH: Agreed; PSxH: Agreed Nursing Documentation-PMH Hx Cancer: No Hx Gastrointestinal Problems: No Hx Neurological Problems: No Review of Systems Eye: Denies: eye pain, blurred vision ENT: Denies: ear pain, nose congestion, throat swelling Respiratory: Denies: cough, shortness of breath Cardiovascular: Denies: chest pain, palpitations Gastrointestinal: Denies: abdominal pain, diarrhea, nausea, vomiting Musculoskeletal: Reports: joint pain; Denies: back pain Skin: Denies: rash Neurological: Reports: numbness; Denies: headache Endocrine: Denies: increased thirst, increased urine Hematologic/Lymphatic: Denies: easy bruising All Other Systems: negative except mentioned in HPI Physical Exam Vital Signs Date Time Temp Pulse Resp B/P (MAP) Pulse Ox O2 Delivery O2 Flow Rate FiO2 06/27/18 22:31 98.3 88 16 118/82 97 Room Air 98.2 vitals normal Sp02 EP Interpretation: reviewed, normal General Appearance: well appearing, no apparent distress, alert Head: normocephalic, atraumatic Eyes: bilateral eye PERRL, bilateral eye EOMI ENT: hearing grossly normal, normal pharynx Neck: full range of motion, supple, no meningismus Respiratory: chest non-tender, lungs clear, normal breath sounds Cardiovascular #1: regular rate, rhythm, no murmur Gastrointestinal: normal bowel sounds, non tender, no mass, no organomegaly, no bruit, non-distended Musculoskeletal: back normal, gait/station normal, normal range of motion, tender - Left shoulder with diffuse tenderness. Worse with movement. No deformity. No numbness. Normal sensation. Neurologic: alert, oriented x3, other - Subjective pain and numbness to the whole left face including the forehead. Psychiatric: mood/affect normal Skin: warm/dry Medical Decision Making Diagnostic Impression: Primary Impression: Left facial pressure and pain Additional Impression: Left shoulder pain Qualified Codes: M25.512 - Pain in left shoulder ER Course Patient presents with left facial pain and left shoulder pain. This appeared to be mostly muscle skeletal in her shoulder. Pain worse with movement. No evidence of ACS, PE, dissection to name a few. She's not tachycardic or hypoxic. Very nervous and anxious. No mass. EKG Diagnostic Results Rate: normal Rhythm: NSR ST Segments: no acute changes Rhythm Strip Diag. Results Rhythm Strip Time: 23:38 EP Interpretation: yes Rate: 74 Rhythm: NSR, no PVC's, no ectopy Chest X-Ray Diagnostic Results Chest X-Ray Diagnostic Results : Chest X-Ray Ordered: Yes # of Views/Limited/Complete: 1 View Indication: Chest Pain EP Interpretation: Yes Interpretation: no consolidation, no effusion, no pneumothorax Impression: No acute disease Electronically Signed by: Keith Augustine MD Last Vital Signs Date Time Temp Pulse Resp B/P (MAP) Pulse Ox O2 Delivery O2 Flow Rate FiO2 06/27/18 23:26 98.3 06/27/18 22:31 88 16 118/82 97 Room Air Status: improved Disposition: HOME, SELF-CARE Condition: Stable Scripts Ibuprofen* (MOTRIN*) 600 Mg Tablet 600 MG ORAL THREE TIMES A DAY, #30 TAB 0 Refills Prov: KEITH AUGUSTINE M.D. 06/27/18 Additional Instructions: Follow-up with your doctor in 7 days. Return if symptom worsen. KEITH AUGUSTINE M.D. Jun 27, 2018 23:32
--- NOTE | 2018-06-27 23:36 | Diagnostic Imaging Report ---
EXAM: XR Chest, 1 View CLINICAL HISTORY: Chest pain TECHNIQUE: Frontal view of the chest. COMPARISON: 04/25/2016 FINDINGS: Lungs: Unremarkable. No consolidation. Pleural space: Unremarkable. No pneumothorax. Heart: Unremarkable. No cardiomegaly. Mediastinum: Unremarkable. Bones/joints: No acute osseous abnormality. IMPRESSION: No acute cardiopulmonary process.
[2018-06-27] MEDS ORDERED: IBUPROFEN600 MG ORAL (23:39)
[2018-06-28 00:05] VITALS: BP 118/82
--- NOTE | 2018-06-28 13:42 | Cardiology Report ---
APPROVED REPORT EKG Measurement Heart [id number] Normal sinus rhythm with sinus arrhythmia Normal ECG
== END 2018-06-28 00:40 | disposition home or self-care (01) ==
LOC: EMR 23:00
DX: R51 Headache (principal); M25.512 Pain in left shoulder; R07.9 Chest pain, unspecified
CPT/HCPCS: 71045; 93005; 96374; 99284; J2270

== ENCOUNTER 2019-01-25 19:13 | Emergency (ER) | payer MEDICAID ==
[~2019-01-25] VITALS: Ht 165.1 cm; Wt 81.6 kg
[~2019-01-25 19:13] MED LIST changes: +IBUPROFEN600 MG ORAL
[2019-01-25 19:26] VITALS: BP 126/67
--- NOTE | 2019-01-25 19:28 | NUR ---
ER Nurse Note: Pt came from home c/o left sided tooth ache since 01/25. Pt stated she went to dentist and had a procdure done; pain after the procdure. Pt VSS, no fever, no blood. Pt has swelling on left side of jaw. Will continue to montior.
[2019-01-25] MEDS ORDERED: HYDROcodone/Acetamin 5/325 tab ORAL ONE (19:45)
--- NOTE | 2019-01-25 20:12 | Emergency Room Report ---
History of Present Illness General Chief Complaint: Pain Source: Patient Present Illness HPI 33-year-old female presents to the emergency department complaining of 10 out of 10 severity pain to the lower left sided molars times one hour. Patient reports that she had dental work performed earlier today and now the anesthesia has worn off. Patient states she is not prescribed any antibiotics or pain medications. Patient states she had several teeth filled. She denies fevers, chills, swollen tender lymph nodes, or sore throat. Patient states pain is worse with opening and closing her mouth. She states she has some swelling as well. Allergies: Coded Allergies: No Known Allergies (Unverified , 12/09/12) Patient History Past Medical History: see triage record Past Surgical History: none Pertinent Family History: none Now: No Reviewed Nursing Documentation: PMH: Agreed; PSxH: Agreed Nursing Documentation-PMH Past Medical History: No History, Except For Hx Cancer: No Hx Gastrointestinal Problems: No Hx Neurological Problems: No Review of Systems All Other Systems: negative except mentioned in HPI Physical Exam Vital Signs Date Time Temp Pulse Resp B/P (MAP) Pulse Ox O2 Delivery O2 Flow Rate FiO2 01/25/19 19:14 97.9 77 18 126/67 98 Room Air Sp02 EP Interpretation: reviewed, normal General Appearance: alert, GCS 15, non-toxic, moderate distress Head: normocephalic, atraumatic Eyes: bilateral eye normal inspection, bilateral eye PERRL ENT: hearing grossly normal, normal voice, other - TTP to the left molars, all three have obvious recent fillings of significant size. there is no erythema or fluctuance. Neck: full range of motion Respiratory: chest non-tender, lungs clear, normal breath sounds, speaking full sentences Cardiovascular #1: regular rate, rhythm Gastrointestinal: normal bowel sounds, non tender, soft Rectal: deferred Genitourinary: normal inspection Musculoskeletal: back normal, gait/station normal, normal range of motion, non- tender Neurologic: alert, oriented x3, responsive, motor strength/tone normal, sensory intact, speech normal, grossly normal Psychiatric: judgement/insight normal Skin: normal color, no rash, warm/dry, well hydrated Lymphatic: no adenopathy Procedures Additional Procedure Procedure Narrative Verbal consent was obtained by pt. for inferior alveolar block of the left lower jaw. -1cc of lidocaine injected into the inferior alveolar space under sterile conditions. Pt. had good anesthetic results, She tolerated well and there were no complications. Medical Decision Making PA Attestation Dr. singleton is my supervising Physician whom patient management has been discussed with. Diagnostic Impression: Primary Impression: Pain, dental ER Course 33-year-old female presents to the emergency department complaining of 10 out of 10 severity pain to the lower left sided molars times one hour. Patient reports that she had dental work performed earlier today and now the anesthesia has worn off. Patient states she is not prescribed any antibiotics or pain medications. Patient states she had several teeth filled. She denies fevers, chills, swollen tender lymph nodes, or sore throat. Patient states pain is worse with opening and closing her mouth. She states she has some swelling as well. Ddx considered but are not limited to cellulitis, dental abscess, orbital cellulitis, d/l tooth, dental pain. trigeminal neuralgia Vital signs: are WNL, pt. is afebrile H&PE are most consistent with dental pain secondary to recent procedure. ORDERS: none required at this time, the diagnosis is clinical ED INTERVENTIONS: -inferior alveolar block -Loving by mouth -I do not identify an emergent condition at this time. With current presentation , pt. is stable for close outpatient follow up and conservative treatment. D/ w pt. to return promptly to ED with worsening or new symptoms.- Pt. verbalizes' understanding and agreement with proposed treatment plan. DISCHARGE: At this time pt. is stable for d/c to home. Will provide printed patient care instructions, and any necessary prescriptions. Care plan and follow up instructions have been discussed with the patient prior to discharge. Last Vital Signs Date Time Temp Pulse Resp B/P (MAP) Pulse Ox O2 Delivery O2 Flow Rate FiO2 01/25/19 19:26 97.9 80 18 126/67 98 Room Air Status: improved Disposition: HOME, SELF-CARE Condition: Stable Scripts Acetaminophen With Codeine (T#3) (TYLENOL #3 TAB*) Y Tab 1 TAB ORAL Q6HR PRN for For Pain, #12 TAB Prov: Bebe Grimm 01/25/19 Amoxicillin* (AMOXIL*) 500 Mg Capsule 500 MG ORAL TID for 7 Days, #21 CAP Prov: Bebe Grimm 01/25/19 Patient Instructions: Dental Pain, [id number] Additional Instructions: Take medications as directed. Follow up with a Dentist in 3-5 days, even if your symptoms have resolved. * * --Please review list of Dental clinics, if you do not already have a Dentist Return sooner to ED if new symptoms occur, or current symptoms become worse. Do not drink alcohol, drive, or operate heavy machinery while taking Tylenol # 3 as this may cause drowsiness. - Please note that this Emergency Department Report was dictated using [employer]ixcar[employer] attendant technology software, occasionally this can lead to erroneous entry secondary to interpretation by the dictation equipment. Bebe Grimm Jan 25, 2019 20:12
[2019-01-25] MEDS ORDERED: AMOXICILLIN500 MG ORAL (20:14)
[2019-01-25] MEDS ORDERED: ACETAMINOPHEN-1 EAC1 ORAL (20:14)
[2019-01-25 20:30] VITALS: BP 126/67
--- NOTE | 2019-01-25 20:30 | NUR ---
ER Nurse Note: Pt seen, treated, medically cleared for discharge by ERMD. Discharge instructions and prescriptions given with repeat verbalization by pt. Instructed pt to follow up with primary care physican within one week. Pt a&ox4, VSS, no signs of acute distress. ID band removed. Pt left with all belongings.
== END 2019-01-25 20:30 | disposition home or self-care (01) ==
LOC: EMR 19:36
DX: K08.89 Other specified disorders of teeth and supporting structures (principal)
CPT/HCPCS: 99282

== ENCOUNTER 2019-08-12 11:08 | Emergency (ER) | payer MEDICAID ==
[~2019-08-12] VITALS: Ht 172.7 cm; Wt 79.4 kg
[~2019-08-12 11:08] MED LIST changes: +ACETAMINOPHEN-1 EAC1 ORAL; +AMOXICILLIN500 MG ORAL
[2019-08-12 11:31] VITALS: BP 122/72
[2019-08-12] MEDS ORDERED: NKM (11:35)
[2019-08-12 11:40] VITALS: BP 122/72
--- NOTE | 2019-08-12 11:40 | NUR ---
ED Nurse Note: pt presents to ED c/o allergies x2 weeks but 2 days ago she started experiencing upper back pain that is worse on the left than the right. pt also states px in her chest, and head. pt reports that she has had a non-productive cough for 2 weeks. pt's primary langauge is arabic.
[2019-08-12] MEDS ORDERED: AMOXICILLIN500 MG ORAL (12:51)
[2019-08-12] MEDS ORDERED: BENADRYL25 MG ORAL (12:51)
--- NOTE | 2019-08-12 12:58 | Diagnostic Imaging Report ---
Indication: Cough, chest pain Technique: One view of the chest Comparison: 06/27/2018 Findings: Lungs and pleural spaces are clear. Heart size is normal. No significant change Impression: No acute process
--- NOTE | 2019-08-12 13:02 | Emergency Room Report ---
History of Present Illness General Chief Complaint: Allergies Source: Patient Present Illness HPI Patient presents emergency department today complaining of allergies sinus congestion cough some shortness of breath and chest discomfort with coughing. She denies any chest pain denies any leg pain leg swelling. Denies any purulent sputum. Symptoms are ongoing for a few days. She complains of subjective fevers and chills although she has no fever here. Denies any dysuria urinary frequency. No other complaints are noted patient noted to be moderate to severe. No other modifying factors. No other associated signs and symptoms. No other complaints were noted. Allergies: Coded Allergies: No Known Allergies (Unverified , 12/09/12) Patient History Past Medical History: none Past Surgical History: none Pertinent Family History: none Social History: Denies: smoking, alcohol use, drug use Last Menstrual Period: 12/2018 Now: No Reviewed Nursing Documentation: PMH: Agreed; PSxH: Agreed Nursing Documentation-PMH Past Medical History: No Stated History Hx Cancer: No Hx Gastrointestinal Problems: No Hx Neurological Problems: No Review of Systems All Other Systems: negative except mentioned in HPI Physical Exam Vital Signs Date Time Temp Pulse Resp B/P (MAP) Pulse Ox O2 Delivery O2 Flow Rate FiO2 08/12/19 11:31 98.1 70 18 122/72 (89) 97 Room Air Sp02 EP Interpretation: reviewed, normal General Appearance: normal inspection, well appearing, no apparent distress, alert Head: atraumatic Eyes: bilateral eye normal inspection ENT: normal ENT inspection, hearing grossly normal, normal voice Neck: normal inspection, full range of motion, supple, no bony tend Respiratory: normal inspection, lungs clear, normal breath sounds, no respiratory distress, no retraction, no wheezing Cardiovascular #1: regular rate, rhythm, no edema Gastrointestinal: normal inspection, normal bowel sounds, non tender, soft, no guarding, no hernia Genitourinary: no CVA tenderness Musculoskeletal: normal inspection, back normal, normal range of motion Neurologic: normal inspection, alert, responsive, speech normal Psychiatric: normal inspection, judgement/insight normal, mood/affect normal Skin: no rash Medical Decision Making Diagnostic Impression: Primary Impression: Cough ER Course Patient presents emergency department today complaint cough congestion sinus pain sinus tenderness. Differential considerations include pneumonia, bronchitis, asthma, sinusitis his name few. Given patient presentation I felt the patient likely has sinusitis. Patient had prolonged symptoms with symptoms greater in 2 weeks. If I felt that is reasonable start patient antibiotics. Patient was given a prescription for antibiotics. And Benadryl for her sinus congestion. Patient is advised to follow up with primary doctor in 2-3 days and return the emergency room for any worsening symptoms and as needed. Last Vital Signs Date Time Temp Pulse Resp B/P (MAP) Pulse Ox O2 Delivery O2 Flow Rate FiO2 08/12/19 11:40 98.1 18 122/72 97 Room Air 08/12/19 11:31 70 Status: improved Disposition: HOME, SELF-CARE Condition: Stable Scripts Diphenhydramine Hcl* (BENADRYL*) 25 Mg Capsule 25 MG ORAL Q6H PRN for sinus pain, #14 CAP Prov: John Morales MD 08/12/19 Amoxicillin* (AMOXIL*) 500 Mg Capsule 500 MG ORAL EVERY 8 HOURS for 10 Days, CAP Prov: John Morales MD 08/12/19 Patient Instructions: Sinusitis, Adult, Acute Bronchitis, [id number] John Morales MD Aug 12, 2019 13:02
--- NOTE | 2019-08-12 13:03 | NUR ---
ED Nurse Note: Patient is being discharged from medical care. Patient awake, alert, oriented x 4. Regular, unlabored breathing noted. D/C instruction and prescription given to patient. Patient verbalized understanding of it. Patient ambulated out with steady gait with all her belongings.
== END 2019-08-12 13:03 | disposition home or self-care (01) ==
LOC: EMR 12:20
DX: R05 Cough (principal); R07.9 Chest pain, unspecified
CPT/HCPCS: 71045; Z7502; 99283

== ENCOUNTER 2019-09-28 22:24 | Emergency (ER) | payer MEDICAID ==
[~2019-09-28] VITALS: Ht 172.7 cm; Wt 81.6 kg
[~2019-09-28 22:24] MED LIST changes: +BENADRYL25 MG ORAL
[2019-09-28 22:39] VITALS: BP 116/81
[2019-09-28] MEDS ORDERED: Metoclopramide 10mg/2ml Inj IVP ONE (23:00)
[2019-09-28] MEDS ORDERED: DiphenhydrAMINE 50mg/ml Inj IVP ONE (23:00)
[2019-09-28] MEDS ORDERED: Acetaminophen 500mg (ES) tab ORAL ONE (23:00)
[2019-09-28 23:24] LABS: BASOPHILS % (AUTO) 0.9 % (0.0-2.0); EOSINOPHILS % (AUTO) 1.6 % (0.0-3.0); HEMATOCRIT 41.1 % (37.0-47.0); HEMOGLOBIN 14.3 G/DL (12.0-16.0); LYMPHOCYTES % (AUTO) 40.3 % (20.0-45.0); MEAN CORPUSCULAR VOLUME 82 FL (80-99); MONOCYTES % (AUTO) 5.9 % (1.0-10.0); NEUTROPHILS % (AUTO) 51.3 % (45.0-75.0); PLATELET COUNT 245 K/UL (150-450); RED BLOOD COUNT 5.02 M/UL (4.20-5.40); RED CELL DISTRIBUTION WIDTH 11.6 % (11.6-14.8); WHITE BLOOD COUNT 8.9 K/UL (4.8-10.8)
[2019-09-28 23:32] LABS: APPEARANCE,URINE CLEAR; BILIRUBIN, URINE NEGATIVE (NEGATIVE); COLOR,URINE PALE YELLOW; GLUCOSE, URINE (UA) NEGATIVE (NEGATIVE); KETONES,URINE NEGATIVE (NEGATIVE); LEUKOCYTE ESTERASE ,URINE 1+ (NEGATIVE); NITRITE,URINE NEGATIVE (NEGATIVE); PH,URINE 7 (4.5-8.0); PROTEIN,URINE NEGATIVE (NEGATIVE); UROBILINOGEN,URINE NORMAL MG/DL (0.0-1.0)
[2019-09-28 23:37] LABS: ANION GAP 9 mmol/L (5-15); BLOOD UREA NITROGEN 7 mg/dL (7-18); CALCIUM 8.7 MG/DL (8.5-10.1); CARBON DIOXIDE 27 MMOL/L (21-32); CHLORIDE 106 MMOL/L (98-107); CREATININE 0.6 MG/DL (0.55-1.30); POTASSIUM 3.7 MMOL/L (3.5-5.1); SODIUM 142 MMOL/L (136-145)
[2019-09-28 23:46] LABS: ALANINE AMINOTRANSFERASE 34 U/L (12-78); ALBUMIN 3.5 G/DL (3.4-5.0); ALBUMIN/GLOBULIN RATIO 0.9 (1.0-2.7); ALKALINE PHOSPHATASE 78 U/L (46-116); ASPARTATE AMINO TRANSFERASE 20 U/L (15-37); BILIRUBIN,TOTAL 0.3 MG/DL (0.2-1.0)
--- NOTE | 2019-09-29 00:38 | Diagnostic Imaging Report ---
Indications: Headache Technique: Spiral acquisitions obtained through the brain. Angled axial and coronal 5 x 5 mm slices were reconstructed. Total dose length product 1394 mGycm. CTDI vol(s) 62 mGy. Dose reduction achieved using automated exposure control Comparison: None. Findings: No acute intracranial hemorrhage or edema. No mass effect nor midline shift. Normal estrada-white differentiation. Normal size ventricles and extra axial CSF spaces. Intact calvarium. The left axilla sinus demonstrates a mucous retention cyst. No significant interim change Impression: Negative Incidental finding right maxillary sinus mucous retention cyst This agrees with the preliminary interpretation provided overnight by [facility] telerad[facility] service. The CT scanner at [facility] is accredited by the [employer] and the scans are performed using protocols designed to limit radiation exposure to as low as reasonably achievable to attain images of sufficient resolution adequate for diagnostic evaluation.
[2019-09-29] MEDS ORDERED: REGLAN10 MG ORAL (01:07)
[2019-09-29] MEDS ORDERED: FIORICET1 EA ORAL (01:07)
[2019-09-29 01:13] VITALS: BP 116/81
--- NOTE | 2019-09-29 02:33 | Emergency Room Report ---
History of Present Illness General Chief Complaint: Headache Source: Patient Present Illness HPI 34-year-old female presents ED for evaluation. complaining of headache. Started tonight while watching today. pain is frontal, throbbing 7/10 nonradating. notes blurry vision. denies nausea or vomiting. denies neck stiffness. denies fevers or chills. took excedrin prior to arrival with no improvement. no other aggravating or relieving factors. Denies any other associated symptoms Allergies: Coded Allergies: No Known Allergies (Unverified , 12/09/12) Patient History Past Medical History: none Past Surgical History: none Pertinent Family History: none Social History: Denies: smoking, alcohol use, drug use Last Menstrual Period: tubal ligation Now: No Immunizations: UTD Reviewed Nursing Documentation: PMH: Agreed; PSxH: Agreed Nursing Documentation-PMH Hx Cancer: No Hx Gastrointestinal Problems: No Hx Neurological Problems: No Review of Systems All Other Systems: negative except mentioned in HPI Physical Exam Vital Signs Date Time Temp Pulse Resp B/P (MAP) Pulse Ox O2 Delivery O2 Flow Rate FiO2 09/28/19 22:26 97.7 76 16 116/81 (93) 97 Room Air Sp02 EP Interpretation: reviewed, normal General Appearance: no apparent distress, alert, GCS 15, non-toxic Head: normocephalic, atraumatic Eyes: bilateral eye normal inspection, bilateral eye PERRL, bilateral eye EOMI ENT: hearing grossly normal, normal pharynx, no angioedema, normal voice Neck: full range of motion, supple, no meningismus, supple/symm/no masses Respiratory: chest non-tender, lungs clear, normal breath sounds, speaking full sentences Cardiovascular #1: regular rate, rhythm, no edema Cardiovascular #2: 2+ carotid (R), 2+ carotid (L), 2+ radial (R), 2+ radial (L) , 2+ dorsalis pedis (R), 2+ dorsalis pedis (L) Gastrointestinal: normal bowel sounds, non tender, soft, non-distended, no guarding, no rebound Rectal: deferred Genitourinary: normal inspection, no CVA tenderness Musculoskeletal: back normal, normal range of motion, gait/station normal, non- tender Neurologic: alert, motor strength/tone normal, oriented x3, sensory intact, responsive, speech normal Psychiatric: judgement/insight normal, memory normal, mood/affect normal, no suicidal/homicidal ideation Reflexes: 3+ bicep (R), 3+ bicep (L), 3+ tricep (R), 3+ tricep (L), 3+ knee (R) , 3+ knee (L) Lymphatic: no adenopathy Medical Decision Making Diagnostic Impression: Primary Impression: Headache Qualified Codes: R51 - Headache ER Course Hospital Course 34 yo F presents with headache and blurry vision. Differential diagnoses include: tension headache, migraine, dehydration, intracranial bleed Clinical course Patient placed on stretcher. After initial history and physical I ordered labs , IV fluids, Reglan, benedryl, tylenol and CT head Labs reviewed- electrolytes okay, no leukocytosis, hemoglobin/hematocrit stable CT head no acute process Upon reassessment patient states pain has improved. Patient feels better wishes to go home. no fever. No nuchal rigidity. No focal deficits. Safe for discharge for close outpatient follow-up. Will provide referrals i. I feel this is a highly complex case requiring extensive working including EKG/Rhythm strip, Xray/CT/US, Blood/urine lab work, repeat exams while in ED, and administration of strong opiates/narcotics for pain control, admission to hospital or close patient follow up. Diagnosis - headache stable and discharged to home with Rx Fioricet, Reglan. f/up with PMD. return to ED if symptoms recur/worsen. Labs Test 09/28/19 23:08 09/28/19 23:17 White Blood Count 8.9 K/UL (4.8-10.8) Red Blood Count 5.02 M/UL (4.20-5.40) Hemoglobin 14.3 G/DL (12.0-16.0) Hematocrit 41.1 % (37.0-47.0) Mean Corpuscular Volume 82 FL (80-99) Mean Corpuscular Hemoglobin 28.5 PG (27.0-31.0) Mean Corpuscular Hemoglobin Concent 34.9 G/DL (32.0-36.0) Red Cell Distribution Width 11.6 % (11.6-14.8) Platelet Count 245 K/UL (150-450) Mean Platelet Volume 6.7 FL (6.5-10.1) Neutrophils (%) (Auto) 51.3 % (45.0-75.0) Lymphocytes (%) (Auto) 40.3 % (20.0-45.0) Monocytes (%) (Auto) 5.9 % (1.0-10.0) Eosinophils (%) (Auto) 1.6 % (0.0-3.0) Basophils (%) (Auto) 0.9 % (0.0-2.0) Sodium Level 142 MMOL/L (136-145) Potassium Level 3.7 MMOL/L (3.5-5.1) Chloride Level 106 MMOL/L (98-107) Carbon Dioxide Level 27 MMOL/L (21-32) Anion Gap 9 mmol/L (5-15) Blood Urea Nitrogen 7 mg/dL (7-18) Creatinine 0.6 MG/DL (0.55-1.30) Estimat Glomerular Filtration Rate > 60 mL/min (>60) Glucose Level 86 MG/DL (74-106) Calcium Level 8.7 MG/DL (8.5-10.1) Total Bilirubin 0.3 MG/DL (0.2-1.0) Aspartate Amino Transf (AST/SGOT) 20 U/L (15-37) Alanine Aminotransferase (ALT/SGPT) 34 U/L (12-78) Alkaline Phosphatase 78 U/L (46-116) Total Protein 7.3 G/DL (6.4-8.2) Albumin 3.5 G/DL (3.4-5.0) Globulin 3.8 g/dL Albumin/Globulin Ratio 0.9 (1.0-2.7) Urine Color Pale yellow Urine Appearance Clear Urine pH 7 (4.5-8.0) Urine Specific [place] 1.005 (1.005-1.035) Urine Protein Negative (NEGATIVE) Urine Glucose (UA) Negative (NEGATIVE) Urine Ketones Negative (NEGATIVE) Urine Blood 4+ (NEGATIVE) Urine Nitrite Negative (NEGATIVE) Urine Bilirubin Negative (NEGATIVE) Urine Urobilinogen Normal MG/DL (0.0-1.0) Urine Leukocyte Esterase 1+ (NEGATIVE) Urine RBC 5-10 /HPF (0 - 2) Urine WBC 2-4 /HPF (0 - 2) Urine Squamous Epithelial Cells Many /LPF (NONE/OCC) Urine Bacteria Few /HPF (NONE) Urine HCG, Qualitative Negative (NEGATIVE) Urine Opiates Screen Negative (NEGATIVE) Urine Barbiturates Screen Negative (NEGATIVE) Phencyclidine (PCP) Screen Negative (NEGATIVE) Urine Amphetamines Screen Negative (NEGATIVE) Urine Benzodiazepines Screen Negative (NEGATIVE) Urine Cocaine Screen Negative (NEGATIVE) Urine Marijuana (THC) Screen Negative (NEGATIVE) CT/MRI/US Diagnostic Results CT/MRI/US Diagnostic Results : Imaging Test Ordered: CT head Impression no acute process Last Vital Signs Date Time Temp Pulse Resp B/P (MAP) Pulse Ox O2 Delivery O2 Flow Rate FiO2 09/29/19 01:13 97.7 16 116/81 97 Room Air 09/28/19 22:26 76 Status: improved Disposition: HOME, SELF-CARE Condition: Stable Scripts Metoclopramide Hcl* (REGLAN*) 10 Mg Tablet 10 MG ORAL THREE TIMES A DAY, #15 TAB Prov: Moreno Bernard MD 09/29/19 Acetamin/Butalbital/Caffeine* (FIORICET*) 1 Ea Tab 1 TAB ORAL Q6H, #15 TAB 0 Refills Prov: Moreno Bernard MD 09/29/19 Referrals: [facility] Patient Instructions: Migraine Headache Moreno Bernard MD Sep 29, 2019 02:33
== END 2019-09-29 01:14 | disposition home or self-care (01) ==
LOC: EMR 22:40
DX: R51 Headache (principal)
CPT/HCPCS: 36415; 70450; 80053; 80307; 81003; 81025; 85025; 96361; 96374; 96375; J1200; J2765; J7030; Z7502; 99284